=== PATIENT | male | born 1995 ===

== ENCOUNTER 2020-03-04 14:07 | Outpatient (REF) | payer OTHER, SELFPAY ==
[2020-03-07 05:05] LABS: SARS-CoV-2 RNA Undetected (Undetected); SARS-CoV-2 Specimen Source Nasopharynx
== END 2020-03-04 14:27 ==
LOC: NCHCN 14:07
PROVIDERS: Referring Provider Family Medicine; Visit Provider Family Medicine
DX: Z20.828 Contact with and (suspected) exposure to other viral communicable diseases (principal)
CPT/HCPCS: U0003